=== PATIENT | male | born 1965 | race African-American/Black ===

== ENCOUNTER 2021-06-08 10:43 | Inpatient (IN) | payer BC ==
[2021-06-08] MEDS ORDERED: BISMUTH SUBSALICYLATE 262 MG/15 ML BTL PO PRN (11:20)
[2021-06-08] MEDS ORDERED: MAGNESIUM HYDROX 2400MG/30ML ORAL SUSPENSION 30 ML CUP PO PRN (11:20)
[2021-06-08] MEDS ORDERED: ONDANSETRON *ODT* 4 MG TABLET SL PRN (11:20)
[2021-06-08] MEDS ORDERED: cloNIDine HCL 0.1 MG TABLET PO PRN (11:20)
[2021-06-08] MEDS ORDERED: BENZOCAINE/MENTHOL (CHLORASEPTIC ) LOZENGE MM PRN (11:20)
[2021-06-08] MEDS ORDERED: chlordiazePOXIDE HCL 25 MG CAPSULE PO PRN (11:20)
[2021-06-08] MEDS ORDERED: IBUPROFEN 400 MG TABLET (FP) PO PRN (11:20)
[2021-06-08] MEDS ORDERED: METHOCARBAMOL 500 MG TABLET PO PRN (11:20)
[2021-06-08] MEDS ORDERED: NICOTINE 10 MG CARTRIDGE (INHALER) IH PRN (11:20)
[2021-06-08] MEDS ORDERED: MAG HYDROX/AL HYDROX/SIMETH 30 ML UNIT-DOSE CUP PO PRN (11:20)
[2021-06-08] MEDS ORDERED: methaDONE HCL 10 MG TABLET (FOR DETOX USE ONLY) PO ONE (11:20)
[2021-06-08] MEDS ORDERED: LOPERAMIDE HCL 2 MG CAPSULE PO PRN (11:20)
[2021-06-08] MEDS ORDERED: ACETAMINOPHEN 325 MG TABLET (FP) PO PRN ×2 (11:20)
[2021-06-08] MEDS ORDERED: DICYCLOMINE HCL 10 MG CAPSULE PO PRN (11:20)
[2021-06-08] MEDS ORDERED: MAGNESIUM CITRATE 300 ML BOTTLE PO PRN (11:20)
[2021-06-08] MEDS ORDERED: cloNIDine HCL 0.1 MG TABLET PO STA (11:24)
[2021-06-08] MEDS ORDERED: cloNIDine HCL 0.1 MG TABLET ONE (12:05)
[2021-06-08 12:08] VITALS: BMI 18.1
[2021-06-08] MEDS: PRENATAL VITAMINS W/ FOLIC ACID TABLET (FP) PO SCH (13:10)
[2021-06-08] MEDS: NICOTINE 14 MG/24 HOURS TOPICAL PATCH TD SCH (13:10)
[2021-06-08] MEDS: chlordiazePOXIDE HCL 25 MG CAPSULE PO SCH ×3 (13:11→23:15)
[2021-06-08 13:42] LABS: HEMATOCRIT 35.9 % (35.4-49); HEMOGLOBIN 11.4 GM/dL (11.7-16.9); MCH 23.1 pg (25.7-33.7); MCHC 31.8 g/dl (32.0-35.9); MEAN CELL VOLUME 72.5 fl (80-96); MEAN PLT VOLUME 8.4 fl (7.5-11.1); PLATELET COUNT 254 10^3/uL (134-434); RBC 4.95 M/mm3 (4.00-5.60); RDW 16.5 % (11.9-15.9); WHITE BLOOD COUNT 7.4 K/mm3 (4.0-10.0)
[2021-06-08 13:48] LABS: CHLORIDE 86 mmol/L (98-107); SODIUM 128 mmol/L (136-145)
[2021-06-08 13:59] LABS: ALBUMIN 3.6 g/dl (3.4-5.0); CALCIUM 9.3 mg/dL (8.5-10.1); CO2 32 mmol/L (21-32)
[2021-06-08 14:00] LABS: GLUCOSE,RANDOM 117 mg/dL (74-106)
[2021-06-08 14:02] LABS: SGPT/ALT 45 U/L (13-61)
[2021-06-08 14:03] LABS: SGOT/AST 64 U/L (15-37)
[2021-06-08] MEDS: hydrOXYzine PAMOATE 25 MG CAPSULE (FP) PO SCH ×3 (14:03→23:16)
[2021-06-08 14:04] LABS: BILIRUBIN,TOTAL 0.6 mg/dL (0.2-1); TOT PROT 7.9 g/dl (6.4-8.2)
[2021-06-08 14:05] LABS: ALK PHOS 99 U/L (45-117)
[2021-06-08 14:08] LABS: ANION GAP 10 MMOL/L (8-16)
[2021-06-08] MEDS ORDERED: POTASSIUM CHLORIDE ORAL LIQUID 20 MEQ/15 ML PO ONE ×2 (15:00→19:00)
[2021-06-08] MEDS: amLODIPine BESYLATE 10 MG TABLET (FP) PO SCH (16:54)
[2021-06-08] MEDS ORDERED: cloNIDine HCL 0.1 MG TABLET PO ONE (20:29)
[2021-06-08] MEDS ORDERED: LISINOPRIL 10 MG TABLET PO ONE (23:04)
[2021-06-08] MEDS: MELATONIN 5 MG TABLETS PO SCH (23:15)
[2021-06-08] MEDS: THIAMINE HCL 100 MG TABLET (FP) PO SCH (23:16)
[2021-06-09] MEDS: chlordiazePOXIDE HCL 25 MG CAPSULE PO SCH ×2 (05:38→12:55)
[2021-06-09] MEDS: hydrOXYzine PAMOATE 25 MG CAPSULE (FP) PO SCH ×6 (05:38→22:52)
[2021-06-09] MEDS ORDERED: methaDONE HCL 10 MG TABLET (FOR DETOX USE ONLY) ONE (09:14)
[2021-06-09] MEDS: NICOTINE 14 MG/24 HOURS TOPICAL PATCH TD SCH (12:54)
[2021-06-09] MEDS: PRENATAL VITAMINS W/ FOLIC ACID TABLET (FP) PO SCH (12:54)
[2021-06-09] MEDS: amLODIPine BESYLATE 10 MG TABLET (FP) PO SCH (12:54)
[2021-06-09 14:08] LABS: SARS-CoV-2 NAA Not Detected (Not Detected)
[2021-06-09] MEDS: chlordiazePOXIDE HCL 10 MG CAPSULE PO SCH ×2 (18:42→22:52)
[2021-06-09] MEDS: MELATONIN 5 MG TABLETS PO SCH (22:52)
[2021-06-09] MEDS: THIAMINE HCL 100 MG TABLET (FP) PO SCH (22:52)
[2021-06-10] MEDS: hydrOXYzine PAMOATE 25 MG CAPSULE (FP) PO SCH ×5 (05:31→22:52)
[2021-06-10] MEDS: chlordiazePOXIDE HCL 25 MG CAPSULE PO SCH ×2 (05:31→11:43)
[2021-06-10] MEDS ORDERED: methaDONE HCL 10 MG TABLET (FOR DETOX USE ONLY) PO ONE (10:00)
[2021-06-10] MEDS: PRENATAL VITAMINS W/ FOLIC ACID TABLET (FP) PO SCH (11:43)
[2021-06-10] MEDS: NICOTINE 14 MG/24 HOURS TOPICAL PATCH TD SCH (11:44)
[2021-06-10] MEDS: LACTULOSE 20 GM/30 ML UDC (FOR ORAL USE ONLY) PO SCH ×2 (14:02→22:55)
[2021-06-10 14:08] LABS: SARS-CoV-2 NAA Not Detected (Not Detected)
[2021-06-10] MEDS: chlordiazePOXIDE HCL 10 MG CAPSULE PO SCH ×2 (18:21→22:53)
[2021-06-10] MEDS: THIAMINE HCL 100 MG TABLET (FP) PO SCH (22:52)
[2021-06-10] MEDS: MELATONIN 5 MG TABLETS PO SCH (22:52)
[2021-06-11] MEDS ORDERED: chlordiazePOXIDE HCL 10 MG CAPSULE PO PRN
[2021-06-11] MEDS: hydrOXYzine PAMOATE 25 MG CAPSULE (FP) PO SCH ×5 (05:09→22:57)
[2021-06-11] MEDS: LACTULOSE 20 GM/30 ML UDC (FOR ORAL USE ONLY) PO SCH ×3 (05:09→22:50)
[2021-06-11] MEDS: chlordiazePOXIDE HCL 10 MG CAPSULE PO SCH ×4 (05:09→22:55)
[2021-06-11] MEDS ORDERED: methaDONE HCL 10 MG TABLET (FOR DETOX USE ONLY) ONE (09:24)
[2021-06-11] MEDS: PRENATAL VITAMINS W/ FOLIC ACID TABLET (FP) PO SCH (10:17)
[2021-06-11] MEDS: NICOTINE 14 MG/24 HOURS TOPICAL PATCH TD SCH (10:20)
[2021-06-11 10:37] LABS: CALCIUM 8.7 mg/dL (8.5-10.1)
[2021-06-11 10:38] LABS: BLOOD UREA NITROGEN 56.5 mg/dL (7-18)
[2021-06-11 10:41] LABS: CREATININE 4.1 mg/dL (0.55-1.3); HEMATOCRIT 36.8 % (35.4-49); HEMOGLOBIN 11.7 GM/dL (11.7-16.9); MCH 23.3 pg (25.7-33.7); MCHC 31.8 g/dl (32.0-35.9); MEAN CELL VOLUME 73.3 fl (80-96); MEAN PLT VOLUME 8.4 fl (7.5-11.1); PLATELET COUNT 280 10^3/uL (134-434); RBC 5.02 M/mm3 (4.00-5.60); RDW 16.2 % (11.9-15.9); WHITE BLOOD COUNT 11.2 K/mm3 (4.0-10.0)
[2021-06-11 10:43] LABS: BILIRUBIN,TOTAL 0.5 mg/dL (0.2-1); TOT PROT 6.8 g/dl (6.4-8.2)
[2021-06-11] MEDS: THIAMINE HCL 100 MG TABLET (FP) PO SCH (22:54)
[2021-06-11] MEDS: MELATONIN 5 MG TABLETS PO SCH (22:55)
[2021-06-12] MEDS: hydrOXYzine PAMOATE 25 MG CAPSULE (FP) PO SCH ×5 (05:53→21:58)
[2021-06-12] MEDS: chlordiazePOXIDE HCL 10 MG CAPSULE PO SCH ×2 (05:53→17:50)
[2021-06-12] MEDS: LACTULOSE 20 GM/30 ML UDC (FOR ORAL USE ONLY) PO SCH ×3 (05:55→21:59)
[2021-06-12] MEDS ORDERED: methaDONE HCL 10 MG TABLET (FOR DETOX USE ONLY) PO ONE (10:00)
[2021-06-12] MEDS: PRENATAL VITAMINS W/ FOLIC ACID TABLET (FP) PO SCH (10:22)
[2021-06-12] MEDS: NICOTINE 14 MG/24 HOURS TOPICAL PATCH TD SCH (10:52)
[2021-06-12] MEDS ORDERED: cloNIDine HCL 0.1 MG TABLET PO ONE (13:45)
[2021-06-12] MEDS: THIAMINE HCL 100 MG TABLET (FP) PO SCH (21:58)
[2021-06-12] MEDS: MELATONIN 5 MG TABLETS PO SCH (21:59)
[2021-06-13] MEDS ORDERED: chlordiazePOXIDE HCL 10 MG CAPSULE PO ONE (05:00)
[2021-06-13] MEDS: LACTULOSE 20 GM/30 ML UDC (FOR ORAL USE ONLY) PO SCH (05:05)
[2021-06-13] MEDS: hydrOXYzine PAMOATE 25 MG CAPSULE (FP) PO SCH (05:08)
[2021-06-13] MEDS ORDERED: cloNIDine HCL 0.1 MG TABLET PO PRN (07:26)
[2021-06-13] MEDS: PRENATAL VITAMINS W/ FOLIC ACID TABLET (FP) PO SCH (10:17)
[2021-06-13] MEDS: NICOTINE 14 MG/24 HOURS TOPICAL PATCH TD SCH (11:26)
[2021-06-13 12:29] LABS: BASO % 0.7 % (0-2.0); EOS % 3.7 % (0-4.5); HEMATOCRIT 30.5 % (35.4-49); HEMOGLOBIN 9.9 GM/dL (11.7-16.9); LYMPH % 18.5 % (8-40); MCH 23.7 pg (25.7-33.7); MCHC 32.5 g/dl (32.0-35.9); MEAN CELL VOLUME 73.1 fl (80-96); MONO % 8.1 % (3.8-10.2); PLATELET COUNT 295 10^3/uL (134-434); RBC 4.18 M/mm3 (4.00-5.60); RDW 16.5 % (11.9-15.9); WHITE BLOOD COUNT 6.8 K/mm3 (4.0-10.0)
[2021-06-13 12:36] LABS: CALCIUM 8.4 mg/dL (8.5-10.1)
[2021-06-13 12:37] LABS: ALBUMIN 2.6 g/dl (3.4-5.0); BLOOD UREA NITROGEN 35.2 mg/dL (7-18)
[2021-06-13 12:39] LABS: CREATININE 3.3 mg/dL (0.55-1.3)
[2021-06-13 12:41] LABS: BILIRUBIN,TOTAL 0.2 mg/dL (0.2-1)
[2021-06-13] MEDS ORDERED: POTASSIUM CHLORIDE TABS 20 MEQ TABLET.ER (FP) PO SCH (13:00)
[2021-06-13 13:13] VITALS: BP 119/74; PULSE 88; TEMP 97.9
[2021-06-13] MEDS ORDERED: LACTULOSE 20 GM/30 ML UDC (FOR ORAL USE ONLY) PO SCH (14:00)
[2021-06-15 00:06] LABS: SARS-CoV-2 NAA Not Detected (Not Detected)
== END 2021-06-13 13:39 | disposition other institution (70) | DRG 773 ==
LOC: YASAS 10:43 → Y6N 12:20
PROVIDERS: ADMIT Allergy & Immunology; ATTEND Allergy & Immunology
PROC: HZ2ZZZZ Detoxification Services for Substance Abuse Treatment (ICD-10-PCS; principal; 2021-06-08)
DX: F11.23 Opioid dependence with withdrawal (principal); F10.230 Alcohol dependence with withdrawal, uncomplicated; F14.20 Cocaine dependence, uncomplicated; F17.210 Nicotine dependence, cigarettes, uncomplicated; F43.10 Post-traumatic stress disorder, unspecified; I10 Essential (primary) hypertension; R79.89 Other specified abnormal findings of blood chemistry; Z91.14 Patient's other noncompliance with medication regimen
CPT/HCPCS: 36415; 80053; 82140; 82962; 84132; 85025; 85027; 86780; 93005; 93010; C9803-CS; J0735; U0003; U0005

== ENCOUNTER 2021-06-13 14:15 | Inpatient (IN) | payer BC ==
[2021-06-13] MEDS ORDERED: IBUPROFEN 400 MG TABLET (FP) PO PRN (14:41)
[2021-06-13] MEDS ORDERED: BENZOCAINE/MENTHOL (CHLORASEPTIC ) LOZENGE MM PRN (14:41)
[2021-06-13] MEDS ORDERED: guaiFENesin 200 MG/10 ML 10 ML UNIT-DOSE CUPS PO PRN (14:41)
[2021-06-13] MEDS ORDERED: P-EPHED 60MG/TRIPROLIDI 2.5MG TABLET PO PRN (14:41)
[2021-06-13] MEDS ORDERED: LOPERAMIDE HCL 2 MG CAPSULE PO PRN (14:41)
[2021-06-13] MEDS ORDERED: MAGNESIUM HYDROX 2400MG/30ML ORAL SUSPENSION 30 ML CUP PO PRN (14:41)
[2021-06-13] MEDS ORDERED: MAG HYDROX/AL HYDROX/SIMETH 30 ML UNIT-DOSE CUP PO PRN (14:41)
[2021-06-13] MEDS ORDERED: MAGNESIUM CITRATE 300 ML BOTTLE PO PRN (14:41)
[2021-06-13] MEDS: POTASSIUM CHLORIDE TABS 20 MEQ TABLET.ER (FP) PO SCH (15:09)
[2021-06-13] MEDS: FERROUS SO4 325 MG TABLET (FP) PO SCH (17:31)
[2021-06-13] MEDS: LACTULOSE 20 GM/30 ML UDC (FOR ORAL USE ONLY) PO SCH ×2 (17:31→21:05)
[2021-06-13] MEDS: THIAMINE HCL 100 MG TABLET (FP) PO SCH (21:04)
[2021-06-13] MEDS: MELATONIN 5 MG TABLETS PO SCH (21:04)
[2021-06-13] MEDS: hydrOXYzine PAMOATE 25 MG CAPSULE (FP) PO PRN (21:04)
[2021-06-14] MEDS: hydrOXYzine PAMOATE 25 MG CAPSULE (FP) PO PRN (06:17)
[2021-06-14] MEDS ORDERED: cloNIDine HCL 0.1 MG TABLET PO ONE (06:25)
[2021-06-14] MEDS: FERROUS SO4 325 MG TABLET (FP) PO SCH ×3 (07:04→17:27)
[2021-06-14] MEDS: NICOTINE 7 MG/24 HOURS TOPICAL PATCH TD SCH (10:08)
[2021-06-14] MEDS: amLODIPine BESYLATE 10 MG TABLET (FP) PO SCH (10:08)
[2021-06-14] MEDS: LACTULOSE 20 GM/30 ML UDC (FOR ORAL USE ONLY) PO SCH ×4 (10:08→21:14)
[2021-06-14] MEDS: PRENATAL VITAMINS W/ FOLIC ACID TABLET (FP) PO SCH (10:11)
[2021-06-14] MEDS: POTASSIUM CHLORIDE TABS 20 MEQ TABLET.ER (FP) PO SCH (11:26)
[2021-06-14] MEDS: MELATONIN 5 MG TABLETS PO SCH (21:14)
[2021-06-14] MEDS: THIAMINE HCL 100 MG TABLET (FP) PO SCH (21:14)
[2021-06-15] MEDS: FERROUS SO4 325 MG TABLET (FP) PO SCH ×3 (07:03→17:41)
[2021-06-15] MEDS: NICOTINE 7 MG/24 HOURS TOPICAL PATCH TD SCH (09:04)
[2021-06-15] MEDS: PRENATAL VITAMINS W/ FOLIC ACID TABLET (FP) PO SCH (09:04)
[2021-06-15] MEDS: amLODIPine BESYLATE 10 MG TABLET (FP) PO SCH (09:04)
[2021-06-15] MEDS: LACTULOSE 20 GM/30 ML UDC (FOR ORAL USE ONLY) PO SCH ×4 (09:04→21:16)
[2021-06-15] MEDS: POTASSIUM CHLORIDE TABS 20 MEQ TABLET.ER (FP) PO SCH (09:49)
[2021-06-15] MEDS ORDERED: cloNIDine HCL 0.1 MG TABLET PO ONE ×2 (11:00→21:09)
[2021-06-15 12:35] LABS: EOS % 2.9 % (0-4.5); HEMATOCRIT 32.9 % (35.4-49); HEMOGLOBIN 10.3 GM/dL (11.7-16.9); LYMPH % 19.1 % (8-40); MCH 23.2 pg (25.7-33.7); MCHC 31.3 g/dl (32.0-35.9); MEAN CELL VOLUME 74.1 fl (80-96); MEAN PLT VOLUME 8.2 fl (7.5-11.1); MONO % 4.7 % (3.8-10.2); NEUT % 72.3 % (42.8-82.8); PLATELET COUNT 349 10^3/uL (134-434); RBC 4.44 M/mm3 (4.00-5.60); RDW 16.2 % (11.9-15.9)
[2021-06-15 13:02] LABS: CALCIUM 8.5 mg/dL (8.5-10.1)
[2021-06-15 13:03] LABS: ALBUMIN 2.7 g/dl (3.4-5.0); BLOOD UREA NITROGEN 28.4 mg/dL (7-18)
[2021-06-15 13:07] LABS: BILIRUBIN,TOTAL 0.3 mg/dL (0.2-1); TOT PROT 6.2 g/dl (6.4-8.2)
[2021-06-15] MEDS: MELATONIN 5 MG TABLETS PO SCH (21:15)
[2021-06-15] MEDS: THIAMINE HCL 100 MG TABLET (FP) PO SCH (21:15)
[2021-06-16] MEDS: FERROUS SO4 325 MG TABLET (FP) PO SCH ×3 (07:17→17:54)
[2021-06-16] MEDS: POTASSIUM CHLORIDE TABS 20 MEQ TABLET.ER (FP) PO SCH (09:02)
[2021-06-16] MEDS: amLODIPine BESYLATE 10 MG TABLET (FP) PO SCH (09:02)
[2021-06-16] MEDS: LACTULOSE 20 GM/30 ML UDC (FOR ORAL USE ONLY) PO SCH ×4 (09:02→21:10)
[2021-06-16] MEDS: PRENATAL VITAMINS W/ FOLIC ACID TABLET (FP) PO SCH (09:05)
[2021-06-16] MEDS: NICOTINE 7 MG/24 HOURS TOPICAL PATCH TD SCH (09:05)
[2021-06-16] MEDS ORDERED: cloNIDine HCL 0.1 MG TABLET PO SCH (10:00)
[2021-06-16] MEDS: MELATONIN 5 MG TABLETS PO SCH (21:09)
[2021-06-16] MEDS: THIAMINE HCL 100 MG TABLET (FP) PO SCH (21:09)
[2021-06-16] MEDS: PRAZOSIN HCL 1 MG CAPSULE PO SCH (22:33)
[2021-06-16] MEDS: cloNIDine HCL 0.1 MG TABLET PO PRN (22:35)
[2021-06-17] MEDS: FERROUS SO4 325 MG TABLET (FP) PO SCH ×3 (08:08→17:24)
[2021-06-17] MEDS: cloNIDine HCL 0.1 MG TABLET PO PRN ×2 (08:09→21:03)
[2021-06-17] MEDS: LACTULOSE 20 GM/30 ML UDC (FOR ORAL USE ONLY) PO SCH ×4 (10:03→21:03)
[2021-06-17] MEDS: amLODIPine BESYLATE 10 MG TABLET (FP) PO SCH (10:03)
[2021-06-17] MEDS: PRENATAL VITAMINS W/ FOLIC ACID TABLET (FP) PO SCH (10:03)
[2021-06-17] MEDS: NICOTINE 7 MG/24 HOURS TOPICAL PATCH TD SCH ×2 (10:05→10:56)
[2021-06-17] MEDS ORDERED: HYDROCHLOROTHIAZIDE 12.5 MG CAPSULE (FP) PO SCH (11:00)
[2021-06-17] MEDS: LISINOPRIL 5 MG TABLET PO SCH (12:16)
[2021-06-17] MEDS: NICOTINE 10 MG CARTRIDGE (INHALER) IH PRN (13:47)
[2021-06-17 14:08] LABS: SARS-CoV-2 NAA Not Detected (Not Detected)
[2021-06-17] MEDS: THIAMINE HCL 100 MG TABLET (FP) PO SCH (21:02)
[2021-06-17] MEDS: PRAZOSIN HCL 1 MG CAPSULE PO SCH (21:03)
[2021-06-17] MEDS: SUVOREXANT 10 MG TABLET PO PRN (21:03)
[2021-06-18] MEDS: NICOTINE 10 MG CARTRIDGE (INHALER) IH PRN (06:50)
[2021-06-18] MEDS: FERROUS SO4 325 MG TABLET (FP) PO SCH ×3 (07:09→18:00)
[2021-06-18] MEDS: PRENATAL VITAMINS W/ FOLIC ACID TABLET (FP) PO SCH (10:19)
[2021-06-18] MEDS: NICOTINE 7 MG/24 HOURS TOPICAL PATCH TD SCH (10:19)
[2021-06-18] MEDS: LISINOPRIL 5 MG TABLET PO SCH (10:19)
[2021-06-18] MEDS: LACTULOSE 20 GM/30 ML UDC (FOR ORAL USE ONLY) PO SCH ×4 (10:19→21:08)
[2021-06-18] MEDS: amLODIPine BESYLATE 10 MG TABLET (FP) PO SCH (10:19)
[2021-06-18 11:16] LABS: ALBUMIN 2.9 g/dl (3.4-5.0); BLOOD UREA NITROGEN 41.4 mg/dL (7-18); CALCIUM 8.6 mg/dL (8.5-10.1); CREATININE 2.7 mg/dL (0.55-1.3)
[2021-06-18 11:18] LABS: BILIRUBIN,TOTAL 0.3 mg/dL (0.2-1); TOT PROT 6.4 g/dl (6.4-8.2)
[2021-06-18] MEDS: cloNIDine HCL 0.1 MG TABLET PO PRN (21:08)
[2021-06-18] MEDS: SUVOREXANT 10 MG TABLET PO PRN (21:08)
[2021-06-18] MEDS: THIAMINE HCL 100 MG TABLET (FP) PO SCH (21:08)
[2021-06-18] MEDS: PRAZOSIN HCL 1 MG CAPSULE PO SCH (21:08)
[2021-06-19] MEDS: cloNIDine HCL 0.1 MG TABLET PO PRN (06:25)
[2021-06-19 06:54] VITALS: TEMP 98.9
[2021-06-19] MEDS: FERROUS SO4 325 MG TABLET (FP) PO SCH ×3 (07:53→19:15)
[2021-06-19] MEDS: LACTULOSE 20 GM/30 ML UDC (FOR ORAL USE ONLY) PO SCH ×4 (10:12→23:58)
[2021-06-19] MEDS: NICOTINE 7 MG/24 HOURS TOPICAL PATCH TD SCH (10:12)
[2021-06-19] MEDS: amLODIPine BESYLATE 10 MG TABLET (FP) PO SCH (10:12)
[2021-06-19] MEDS: PRENATAL VITAMINS W/ FOLIC ACID TABLET (FP) PO SCH (10:13)
[2021-06-19] MEDS: LISINOPRIL 5 MG TABLET PO SCH (11:17)
[2021-06-19 12:57] VITALS: BP 148/93; PULSE 87
[2021-06-19] MEDS ORDERED: cloNIDine HCL 0.1 MG TABLET PO SCH (22:00)
[2021-06-19] MEDS: PRAZOSIN HCL 1 MG CAPSULE PO SCH (23:58)
[2021-06-19] MEDS: THIAMINE HCL 100 MG TABLET (FP) PO SCH (23:59)
== END 2021-06-19 23:55 | disposition short-term general hospital (02) | DRG 772 ==
LOC: YASAS 14:15 → Y3W 14:17
PROVIDERS: ADMIT Allergy & Immunology; ATTEND Allergy & Immunology
PROC: HZ42ZZZ Group Counseling for Substance Abuse Treatment, Cognitive-Behavioral (ICD-10-PCS; principal; 2021-06-13)
DX: F11.20 Opioid dependence, uncomplicated (principal); F10.20 Alcohol dependence, uncomplicated; F14.20 Cocaine dependence, uncomplicated; F12.20 Cannabis dependence, uncomplicated; F17.210 Nicotine dependence, cigarettes, uncomplicated; F43.10 Post-traumatic stress disorder, unspecified; D64.9 Anemia, unspecified; I10 Essential (primary) hypertension; N28.9 Disorder of kidney and ureter, unspecified; R79.89 Other specified abnormal findings of blood chemistry; Z56.0 Unemployment, unspecified; Z59.00 Homelessness unspecified
CPT/HCPCS: 36415; 80053; 82140; 85025; C9803-CS; J0735; U0003; U0005

== ENCOUNTER 2021-06-19 14:02 | Inpatient (IN) | payer BC ==
[2021-06-19] MEDS ORDERED: SODIUM CHLORIDE 0.9% 500 ML INFUS.BAG IV ONE (14:33)
[2021-06-19 14:58] LABS: BASO % 1.1 % (0-2.0); EOS % 1.6 % (0-4.5); HEMOGLOBIN 9.5 GM/dL (11.7-16.9); LYMPH % 19.4 % (8-40); MCH 23.6 pg (25.7-33.7); MCHC 32.6 g/dl (32.0-35.9); MEAN CELL VOLUME 72.2 fl (80-96); MEAN PLT VOLUME 7.7 fl (7.5-11.1); MONO % 12.8 % (3.8-10.2); NEUT % 65.1 % (42.8-82.8); PLATELET COUNT 373 10^3/uL (134-434); RBC 4.01 M/mm3 (4.00-5.60); RDW 15.8 % (11.9-15.9)
[2021-06-19 15:02] LABS: EPI CELLS 14 /uL (0-25.1); HYALINE CASTS 1 /uL (0-3.1); URINE APPEARANCE CLEAR; URINE BACTERIA 19 /uL (0-1359); URINE BILIRUBIN NEGATIVE (NEGATIVE); URINE COLOR YELLOW; URINE GLUCOSE (UA) NEGATIVE (NEGATIVE); URINE KETONE NEGATIVE (NEGATIVE); URINE LEUK ESTERASE NEGATIVE (NEGATIVE); URINE NITRITE NEGATIVE (NEGATIVE); URINE PROTEIN 1+ (NEGATIVE); URINE RBC 9 /uL (0-23.9); URINE UROBILINOGEN 0.2 mg/dL (0.2-1.0); URINE WBC 3 /uL (0-25.8)
[2021-06-19 15:05] LABS: PROTHROMBIN TIME (PATIENT) 11.5 SEC (9.7-13.0)
[2021-06-19 15:20] LABS: CALCIUM 8.5 mg/dL (8.5-10.1)
[2021-06-19 15:21] LABS: ALBUMIN 2.8 g/dl (3.4-5.0); BLOOD UREA NITROGEN 44.1 mg/dL (7-18); MAGNESIUM 2.6 mg/dL (1.8-2.4)
[2021-06-19 15:24] LABS: CREATININE 2.6 mg/dL (0.55-1.3); PHOSPHOROUS 4.5 mg/dL (2.5-4.9)
[2021-06-19 15:25] LABS: BILIRUBIN,TOTAL 0.4 mg/dL (0.2-1); TOT PROT 6.2 g/dl (6.4-8.2)
[2021-06-19 17:18] LABS: METHADONE, UR NEGATIVE (NEGATIVE); URINE BENZODIAZEPINES NEGATIVE (NEGATIVE)
[2021-06-19 17:19] LABS: COCAINE, UR NEGATIVE (NEGATIVE); OPIATES, URI NEGATIVE (NEGATIVE); PHENCYCLIDINE,URINE NEGATIVE (NEGATIVE)
[2021-06-19 17:21] LABS: URINE AMPHETAMINES NEGATIVE (NEGATIVE); URINE BARBITURATES NEGATIVE (NEGATIVE)
[2021-06-19] MEDS: SODIUM CHLORIDE 1,000 ML IV SCH (17:55)
[2021-06-19] MEDS: LACTULOSE 20 GM/30 ML UDC (FOR ORAL USE ONLY) PO SCH (21:53)
[2021-06-19] MEDS: HEPARIN NA (PORCINE) 5,000 UNITS/ML 1ML VIAL SQ SCH (21:53)
[2021-06-19 22:24] VITALS: BMI 21.4
[2021-06-20] MEDS: HEPARIN NA (PORCINE) 5,000 UNITS/ML 1ML VIAL SQ SCH ×4 (06:24→21:23)
[2021-06-20] MEDS: SODIUM CHLORIDE 1,000 ML IV SCH ×2 (06:50→20:25)
[2021-06-20] MEDS: amLODIPine BESYLATE 10 MG TABLET (FP) PO SCH ×2 (06:58→10:53)
[2021-06-20] MEDS: TAMSULOSIN HCL 0.4 MG CAP PO SCH (08:05)
[2021-06-20 08:40] LABS: BASO % 1.1 % (0-2.0); EOS % 1.8 % (0-4.5); HEMATOCRIT 34.1 % (35.4-49); LYMPH % 19.5 % (8-40); MCH 23.1 pg (25.7-33.7); MCHC 32.1 g/dl (32.0-35.9); MEAN CELL VOLUME 71.9 fl (80-96); MEAN PLT VOLUME 7.4 fl (7.5-11.1); NEUT % 70.6 % (42.8-82.8); PLATELET COUNT 383 10^3/uL (134-434); RBC 4.75 M/mm3 (4.00-5.60); RDW 16.4 % (11.9-15.9); WHITE BLOOD COUNT 5.5 K/mm3 (4.0-10.0)
[2021-06-20 09:17] LABS: MAGNESIUM 2.5 mg/dL (1.8-2.4)
[2021-06-20 09:21] LABS: PHOSPHOROUS 4.9 mg/dL (2.5-4.9)
[2021-06-20] MEDS: NICOTINE 7 MG/24 HOURS TOPICAL PATCH TD SCH (10:53)
[2021-06-20] MEDS: LACTULOSE 20 GM/30 ML UDC (FOR ORAL USE ONLY) PO SCH ×2 (10:53→21:23)
[2021-06-20] MEDS: ACETAMINOPHEN 325 MG TABLET (FP) PO PRN (20:23)
[2021-06-21] MEDS ORDERED: MELATONIN 1 MG TABLET PO ONE (00:17)
[2021-06-21] MEDS ORDERED: cloNIDine HCL 0.1 MG TABLET PO ONE (00:17)
[2021-06-21] MEDS: ACETAMINOPHEN 325 MG TABLET (FP) PO PRN ×3 (04:45→20:55)
[2021-06-21] MEDS: HEPARIN NA (PORCINE) 5,000 UNITS/ML 1ML VIAL SQ SCH ×3 (06:12→22:06)
[2021-06-21] MEDS: amLODIPine BESYLATE 10 MG TABLET (FP) PO SCH ×2 (06:20→10:36)
[2021-06-21 09:03] LABS: BASO % 0.9 % (0-2.0); EOS % 1.3 % (0-4.5); HEMATOCRIT 34.5 % (35.4-49); LYMPH % 15.9 % (8-40); MCHC 31.9 g/dl (32.0-35.9); MEAN CELL VOLUME 72.1 fl (80-96); MEAN PLT VOLUME 8.2 fl (7.5-11.1); MONO % 10.6 % (3.8-10.2); NEUT % 71.3 % (42.8-82.8); PLATELET COUNT 381 10^3/uL (134-434); RBC 4.79 M/mm3 (4.00-5.60); WHITE BLOOD COUNT 6.4 K/mm3 (4.0-10.0)
[2021-06-21 09:29] LABS: CALCIUM 8.9 mg/dL (8.5-10.1)
[2021-06-21 09:30] LABS: BLOOD UREA NITROGEN 44.4 mg/dL (7-18)
[2021-06-21 09:33] LABS: CREATININE 2.6 mg/dL (0.55-1.3)
[2021-06-21] MEDS: NICOTINE 7 MG/24 HOURS TOPICAL PATCH TD SCH (10:36)
[2021-06-21] MEDS: LACTULOSE 20 GM/30 ML UDC (FOR ORAL USE ONLY) PO SCH ×2 (10:36→22:06)
[2021-06-21] MEDS: TAMSULOSIN HCL 0.4 MG CAP PO SCH (10:36)
[2021-06-21] MEDS: cloNIDine HCL 0.1 MG TABLET PO SCH ×2 (10:54→22:05)
[2021-06-21] MEDS ORDERED: MELATONIN 5 MG TABLETS PO PRN (21:53)
[2021-06-22] MEDS: ACETAMINOPHEN 325 MG TABLET (FP) PO PRN ×2 (05:49→13:05)
[2021-06-22] MEDS: HEPARIN NA (PORCINE) 5,000 UNITS/ML 1ML VIAL SQ SCH ×4 (05:49→22:23)
[2021-06-22] MEDS: TAMSULOSIN HCL 0.4 MG CAP PO SCH (08:51)
[2021-06-22 09:02] LABS: BASO % 0.7 % (0-2.0); EOS % 0.8 % (0-4.5); HEMOGLOBIN 11.5 GM/dL (11.7-16.9); LYMPH % 14.3 % (8-40); MCH 23.5 pg (25.7-33.7); MCHC 32.8 g/dl (32.0-35.9); MEAN CELL VOLUME 71.5 fl (80-96); MEAN PLT VOLUME 7.7 fl (7.5-11.1); NEUT % 76.2 % (42.8-82.8); PLATELET COUNT 372 10^3/uL (134-434); RBC 4.89 M/mm3 (4.00-5.60); RDW 15.9 % (11.9-15.9)
[2021-06-22 09:25] LABS: CALCIUM 9.2 mg/dL (8.5-10.1)
[2021-06-22] MEDS: LACTULOSE 20 GM/30 ML UDC (FOR ORAL USE ONLY) PO SCH ×2 (09:25→22:18)
[2021-06-22] MEDS: cloNIDine HCL 0.1 MG TABLET PO SCH ×2 (09:25→22:18)
[2021-06-22] MEDS: amLODIPine BESYLATE 10 MG TABLET (FP) PO SCH (09:25)
[2021-06-22] MEDS: NICOTINE 7 MG/24 HOURS TOPICAL PATCH TD SCH (09:27)
[2021-06-22 09:29] LABS: CREATININE 2.7 mg/dL (0.55-1.3)
[2021-06-22] MEDS ORDERED: POTASSIUM CHLORIDE 30 MEQ in SODIUM CHLORIDE 1,000 ML IV SCH (14:00)
[2021-06-22] MEDS ORDERED: SODIUM CHLORIDE 1,000 ML with POTASSIUM CHLORIDE 30 MEQ IV SCH (14:00)
[2021-06-22] MEDS: LABETALOL HCL 100 MG TABLET (FP) PO SCH ×2 (14:05→22:18)
[2021-06-23] MEDS: HEPARIN NA (PORCINE) 5,000 UNITS/ML 1ML VIAL SQ SCH ×2 (06:59→15:06)
[2021-06-23] MEDS ORDERED: LABETALOL HCL 100 MG TABLET (FP) PO SCH (07:45)
[2021-06-23] MEDS ORDERED: LABETALOL HCL 200 MG TABLET (FP) PO SCH (09:00)
[2021-06-23] MEDS: NICOTINE 7 MG/24 HOURS TOPICAL PATCH TD SCH (10:24)
[2021-06-23] MEDS: cloNIDine HCL 0.1 MG TABLET PO SCH (10:24)
[2021-06-23] MEDS: LACTULOSE 20 GM/30 ML UDC (FOR ORAL USE ONLY) PO SCH (10:24)
[2021-06-23] MEDS: TAMSULOSIN HCL 0.4 MG CAP PO SCH (10:25)
[2021-06-23] MEDS: amLODIPine BESYLATE 10 MG TABLET (FP) PO SCH (10:25)
[2021-06-23] MEDS ORDERED: LISINOPRIL 5 MG TABLET PO SCH (14:45)
[2021-06-23 14:50] VITALS: BP 118/71; PULSE 80; TEMP 98.3
== END 2021-06-23 18:37 | disposition other institution (70) | DRG 469 ==
LOC: JER 14:02 → JERBED 16:27 → J6S 21:49
PROVIDERS: ADMIT Internal Medicine
DX: N17.9 Acute kidney failure, unspecified (principal); E87.1 Hypo-osmolality and hyponatremia; F14.20 Cocaine dependence, uncomplicated; F17.210 Nicotine dependence, cigarettes, uncomplicated; F10.10 Alcohol abuse, uncomplicated; F11.10 Opioid abuse, uncomplicated; D64.9 Anemia, unspecified; K74.69 Other cirrhosis of liver; I12.9 Hypertensive chronic kidney disease with stage 1 through stage 4 chronic kidney disease, or unspecified chronic kidney disease; N18.9 Chronic kidney disease, unspecified; I25.10 Atherosclerotic heart disease of native coronary artery without angina pectoris; Z95.1 Presence of aortocoronary bypass graft; F19.10 Other psychoactive substance abuse, uncomplicated; Z79.1 Long term (current) use of non-steroidal anti-inflammatories (NSAID); Z59.00 Homelessness unspecified
CPT/HCPCS: 36415; 76775-TC; 80048; 80053; 80307; 81003; 82550; 82570; 82607; 82746; 83540; 83550; 83735; 83930; 83935; 84100; 84153; 84300; 84484; 85025; 85610; 85730; 87086; 93005; 93010; 99285-25; C9803-CS; J0735; J1644; U0003; U0005

== ENCOUNTER 2021-06-23 18:48 | Inpatient (IN) | payer BC ==
[2021-06-23] MEDS ORDERED: MAGNESIUM HYDROX 2400MG/30ML ORAL SUSPENSION 30 ML CUP PO PRN (19:47)
[2021-06-23] MEDS ORDERED: hydrOXYzine PAMOATE 25 MG CAPSULE (FP) PO PRN (19:47)
[2021-06-23] MEDS ORDERED: BENZOCAINE/MENTHOL (CHLORASEPTIC ) LOZENGE MM PRN (19:47)
[2021-06-23] MEDS ORDERED: MAG HYDROX/AL HYDROX/SIMETH 30 ML UNIT-DOSE CUP PO PRN (19:47)
[2021-06-23] MEDS ORDERED: guaiFENesin 200 MG/10 ML 10 ML UNIT-DOSE CUPS PO PRN (19:47)
[2021-06-23] MEDS ORDERED: LOPERAMIDE HCL 2 MG CAPSULE PO PRN (19:47)
[2021-06-23] MEDS ORDERED: ACETAMINOPHEN 325 MG TABLET (FP) PO PRN (19:47)
[2021-06-23] MEDS ORDERED: MAGNESIUM CITRATE 300 ML BOTTLE PO PRN (19:47)
[2021-06-23] MEDS ORDERED: IBUPROFEN 400 MG TABLET (FP) PO PRN (19:47)
[2021-06-23] MEDS ORDERED: P-EPHED 60MG/TRIPROLIDI 2.5MG TABLET PO PRN (19:47)
[2021-06-23] MEDS ORDERED: NICOTINE POLACRILEX 2 MG GUM BUC PRN (19:47)
[2021-06-23 20:08] VITALS: BMI 20.3
[2021-06-23] MEDS: LABETALOL HCL 200 MG TABLET (FP) PO SCH (21:51)
[2021-06-23] MEDS: MELATONIN 5 MG TABLETS PO SCH (21:51)
[2021-06-23] MEDS: cloNIDine HCL 0.1 MG TABLET PO SCH (21:51)
[2021-06-23] MEDS: THIAMINE HCL 100 MG TABLET (FP) PO SCH (21:51)
[2021-06-24] MEDS: PRENATAL VITAMINS W/ FOLIC ACID TABLET (FP) PO SCH (10:25)
[2021-06-24] MEDS: LABETALOL HCL 200 MG TABLET (FP) PO SCH ×2 (10:25→21:16)
[2021-06-24] MEDS: NICOTINE 14 MG/24 HOURS TOPICAL PATCH TD SCH (10:25)
[2021-06-24] MEDS: cloNIDine HCL 0.1 MG TABLET PO SCH ×2 (10:25→21:16)
[2021-06-24] MEDS: LISINOPRIL 5 MG TABLET PO SCH (10:25)
[2021-06-24] MEDS: amLODIPine BESYLATE 10 MG TABLET (FP) PO SCH (10:25)
[2021-06-24] MEDS: PRAZOSIN HCL 1 MG CAPSULE PO SCH (21:15)
[2021-06-24] MEDS: THIAMINE HCL 100 MG TABLET (FP) PO SCH (21:16)
[2021-06-24] MEDS: MELATONIN 5 MG TABLETS PO SCH (21:16)
[2021-06-24] MEDS ORDERED: SUVOREXANT 10 MG TABLET PO PRN (22:00)
[2021-06-25] MEDS: cloNIDine HCL 0.1 MG TABLET PO SCH ×2 (10:14→21:12)
[2021-06-25] MEDS: LISINOPRIL 5 MG TABLET PO SCH (10:14)
[2021-06-25] MEDS: amLODIPine BESYLATE 10 MG TABLET (FP) PO SCH (10:14)
[2021-06-25] MEDS: PRENATAL VITAMINS W/ FOLIC ACID TABLET (FP) PO SCH (10:14)
[2021-06-25] MEDS: LABETALOL HCL 200 MG TABLET (FP) PO SCH ×2 (10:14→21:12)
[2021-06-25] MEDS: NICOTINE 14 MG/24 HOURS TOPICAL PATCH TD SCH (10:16)
[2021-06-25] MEDS: THIAMINE HCL 100 MG TABLET (FP) PO SCH (21:12)
[2021-06-25] MEDS: PRAZOSIN HCL 1 MG CAPSULE PO SCH (21:12)
[2021-06-25] MEDS: MELATONIN 5 MG TABLETS PO SCH (21:12)
[2021-06-26] MEDS: amLODIPine BESYLATE 10 MG TABLET (FP) PO SCH (10:00)
[2021-06-26] MEDS: cloNIDine HCL 0.1 MG TABLET PO SCH (10:00)
[2021-06-26] MEDS: PRENATAL VITAMINS W/ FOLIC ACID TABLET (FP) PO SCH (10:00)
[2021-06-26] MEDS: LABETALOL HCL 200 MG TABLET (FP) PO SCH (10:00)
[2021-06-26] MEDS: NICOTINE 14 MG/24 HOURS TOPICAL PATCH TD SCH (10:00)
[2021-06-26] MEDS: LISINOPRIL 5 MG TABLET PO SCH (10:00)
[2021-06-26 10:11] VITALS: BP 133/81; PULSE 82; TEMP 97.7
== END 2021-06-26 10:01 | disposition home or self-care (01) | DRG 772 ==
LOC: YASAS 18:48 → Y3W 20:03
PROVIDERS: ADMIT Allergy & Immunology; ATTEND Psychiatry & Neurology Pain Medicine
PROC: HZ42ZZZ Group Counseling for Substance Abuse Treatment, Cognitive-Behavioral (ICD-10-PCS; principal; 2021-06-23)
DX: F11.20 Opioid dependence, uncomplicated (principal); F10.20 Alcohol dependence, uncomplicated; F14.20 Cocaine dependence, uncomplicated; F17.210 Nicotine dependence, cigarettes, uncomplicated; I12.9 Hypertensive chronic kidney disease with stage 1 through stage 4 chronic kidney disease, or unspecified chronic kidney disease; N18.9 Chronic kidney disease, unspecified; N17.9 Acute kidney failure, unspecified
CPT/HCPCS: 87811; J0735